=== PATIENT | female | born 1970 | race Caucasian/White ===

== ENCOUNTER 2019-07-07 07:46 | Emergency (ER) | payer OTHER ==
[~2019-07-07] VITALS: Ht 170.2 cm; Wt 101.6 kg
[2019-07-07 07:55] VITALS: Ht 170.2 cm; Wt 101.6 kg
[2019-07-07 09:59] VITALS: BP 152/82
== END 2019-07-07 09:59 | disposition home or self-care (01) ==
LOC: ED 07:46
DX: S00.33XA Contusion of nose, initial encounter (principal); I10 Essential (primary) hypertension; J45.909 Unspecified asthma, uncomplicated; Y04.8XXA Assault by other bodily force, initial encounter; Y93.89 Activity, other specified; Y92.89 Other specified places as the place of occurrence of the external cause; Y99.8 Other external cause status

== ENCOUNTER 2019-11-11 12:05 | Emergency (ER) | payer OTHER ==
[~2019-11-11] VITALS: Ht 167.6 cm; Wt 101.6 kg
[2019-11-11 12:15] VITALS: Ht 167.6 cm; Wt 101.6 kg
[2019-11-11 13:40] VITALS: BP 141/82
== END 2019-11-11 13:40 | disposition home or self-care (01) ==
LOC: ED 12:05
DX: M25.532 Pain in left wrist (principal); J45.909 Unspecified asthma, uncomplicated
CPT/HCPCS: Q0092